=== PATIENT | male | born 1950 | race Caucasian/White ===

== ENCOUNTER 2020-04-11 13:05 | Emergency (ER) | payer MEDICARE, OTHER ==
[~2020-04-11] VITALS: Ht 193 cm; Wt 86.2 kg
[~2020-04-11 13:05] MED LIST: ASPI-667 PO; ATOR80TA PO; CETI10TA18 PO; CHOL200074 PO; CIPR500T86 PO; CLOP75TA52 PO; FURO40TA4 PO; GABA400C10 PO; HYDR25TA PO; INSU100V SQ; INSU100V3 SQ; ISOS60TA2 PO; METF500T17 PO; METO25TA4 PO; NITR0.4T26 SL; NPH,100V SQ; POTA10TA10 PO; QUET100T PO; RANI150T4 PO; SERT100T5 PO; TRAZ-168 PO
[2020-04-11] MEDS ORDERED: ZOFRAN ONE ×2 (13:17→15:33)
[2020-04-11] MEDS ORDERED: NS 1000ML 1,000 ML ONE ×2 (13:17→15:32)
--- NOTE | 2020-04-11 13:17 | NUR ---
ARRIVED PT IN WHEELCHAIR TO ROOM 8 C/C VOMITING AND STOMACH CRAMPING SINCE LAST NIGHT AFTER EATING A CHICKEN FAJITA. PT ACTIVELY VOMITING IV AND ZOFRAN GIVEN PT DENIES SOB CP PT IS DIABETIC AND TOOK 35UNITS OF REGULAR INSULIN BEFORE HE CAME TO THE ER. PT HAS DIABETIC BOOT AND FOOT ULCER ON RIGHT FOOT WITH TWO TOES AMPUTATED.
--- NOTE | 2020-04-11 13:30 | ER.PDOC ---
General Chief Complaint: Requesting Medical Care Stated Complaint: N/V Time seen by MD: 13:30 Source: patient, family Exam Limitations: no limitations History of Present Illness Initial Comments Patient c/o upper abdominal pain with n/v onset last night. Timing/Duration: 24 hours Severity/Quality: moderate, sharpness, stabbing Radiation: RUQ, LUQ, epigastric Associated Symptoms: denies symptoms Allergies: Coded Allergies: Penicillins (Verified Allergy, Unknown, Swelling, 02/16/16) coffee (Coffea arabica) (Verified Allergy, Unknown, 02/16/16) watermelon (Verified Allergy, Unknown, 02/16/16) Home Meds Active Scripts Nitroglycerin (NITROGLYCERIN) 0.4 Mg Tab.subl, 0.4 MG SL DAILY PRN for CHEST PAIN, #30 Prov:VIMAL BRODY MD 03/02/16 Aspirin (ASPIRIN) 81 Mg Tab.chew, 81 MG PO DAILY, #30 TAB.CHEW 4 Refills Prov:VIMAL BRODY MD 02/18/16 Reported Medications Clopidogrel Bisulfate (PLAVIX) 75 Mg Tablet, 1 TAB PO DAILY, #30 TAB 3 Refills 08/01/16 Nph, Human Insulin Isophane (HUMULIN N) 100 Unit/1 Ml Vial, 40 UNIT SQ BIDAC, VIAL 03/01/16 Sertraline Hcl (SERTRALINE HCL) 100 Mg Tablet, 200 MG PO DAILY, TABLET 02/16/16 Cholecalciferol (Vitamin D3) (VITAMIN D-3) 2,000 Unit Capsule, 2000 UNIT PO DAILY, CAPSULE 02/16/16 Atorvastatin 80MG (LIPITOR 80MG) 80 Mg Tablet, 80 MG PO DAILY, TAB 02/16/16 Ranitidine Hcl (RANITIDINE HCL) 150 Mg Tablet, 150 MG PO BID, TABLET 02/16/16 Quetiapine Fumarate (QUETIAPINE FUMARATE) 100 Mg Tablet, 100 MG PO HS, TABLET 02/16/16 Trazodone Hcl (TRAZODONE HCL) 100 Mg Tablet, 300 MG PO HS, TABLET 02/16/16 Potassium Chloride (POTASSIUM CHLORIDE) 10 Meq Tablet.er, 20 MEQ PO DAILY 02/16/16 Hydroxyzine Hcl (HYDROXYZINE HCL) 25 Mg Tablet, 25 MG PO BID PRN for ANXIETY, TABLET 02/16/16 Gabapentin (GABAPENTIN) 400 Mg Capsule, 400 MG PO QID, CAPSULE 02/16/16 Insulin Lispro (HUMALOG) 100 Unit/1 Ml Vial, 29.5 UNIT SQ ACHS PRN for HYPERGLYCEMIA, VIAL per sliding scale 02/16/16 Vital Signs First Vital Signs Date Time Temp Pulse Resp B/P (MAP) Pulse Ox O2 Delivery O2 Flow Rate FiO2 04/11/20 13:40 98.6 122 20 98 04/11/20 15:05 190/110 (136) Room Air Last Vital Signs Date Time Temp Pulse Resp B/P (MAP) Pulse Ox O2 Delivery O2 Flow Rate FiO2 04/11/20 16:14 186/107 04/11/20 15:05 98.6 80 20 94 Room Air Past Medical History Medical History: diabetes (takes 35 U NPH daily), other (cirrhosis) Surgical History: cardiac cath, other Social History Smoking: cigarettes Alcohol Use: sober (14 years) Drug Use: none Constitutional: denies no symptoms reported, denies see HPI, denies chills, denies diaphoresis, denies fever, denies malaise, denies weakness, denies other EENTM: denies no symptoms reported, denies see HPI, denies eye pain, denies blurred vision, denies tearing, denies double vision, denies ear pain, denies ear discharge, denies nose pain, denies nose congestion, denies throat pain, denies throat swelling, denies mouth pain, denies mouth swelling, denies other Respiratory: denies no symptoms reported, denies see HPI, denies cough, denies orthopnea, denies shortness of breath, denies SOB with exertion, denies SOB at rest, denies stridor, denies wheezing, denies other Cardiovascular: denies no symptoms reported, denies see HPI, denies chest pain, denies edema, denies irregular heart rate, denies lightheadedness, denies palpitations, denies syncope, denies other Gastrointestinal: abdominal pain, nausea, vomiting Musculoskeletal: denies no symptoms reported, denies see HPI, denies back pain, denies gout, denies joint pain, denies joint swelling, denies muscle pain, irma es muscle stiffness, denies neck pain, denies other Skin: denies no symptoms reported, denies see HPI, denies change in color, denies change in hair/nails, denies dryness, denies lesions, denies lumps, denies rash, denies other Psychiatric/Neurological: denies no symptoms reported, denies see HPI, denies anxiety, denies depressed, denies emotional problems, denies headache, denies numbness, denies paresthesia, denies pre-existing deficit, denies seizure, denies tingling, denies tremors, denies weakness, denies other All Other Systems: Reviewed and Negative Physical Exam General Appearance: No Apparent Distress, WD/WN HEENT: PERRL/EOMI, Normal ENT Inspection Neck: Full Range of Motion, Supple Respiratory: lungs clear, normal breath sounds, no respiratory distress, no accessory muscle use Cardiovascular: Regular Rate, Rhythm, No Murmur Gastrointestinal: Hypoactive bowel sounds, Soft, Tenderness (epigastric) Extremities: Non-Tender, Normal Inspection, No Pedal Edema, No Calf Tenderness Neurologic/Psychiatric: Alert, Normal Mood/Affect, Oriented x 3 Skin: Normal Color, Warm/Dry Results/Orders Results/Orders Orders - JOHNATHAN DAMON DO Ondansetron Hcl/Pf (Zofran) (04/11/20 13:17) 0.9 % Sodium Chloride (Ns 1000ml) (04/11/20 13:17) Cbc With Auto Diff (04/11/20 13:39) Comprehensive Metabolic Panel (04/11/20 13:39) Amylase (04/11/20 13:39) Lipase (04/11/20 13:39) Helicobacter Pylori (04/11/20 13:39) PT (04/11/20 13:39) Ct Abd/Pel With Iv Contrast (04/11/20 13:39) Partial Thromboplastin Time. (04/11/20 13:39) Urinalysis (04/11/20 13:39) Saline Lock (04/11/20 13:39) 0.9 % Sodium Chloride (Ns 1000ml) (04/11/20 13:39) Ondansetron Hcl/Pf (Zofran) (04/11/20 14:00) Labetalol Hcl (Trandate) (04/11/20 14:58) Labetalol Hcl (Trandate) (04/11/20 14:59) Ondansetron Hcl/Pf (Zofran) (04/11/20 15:31) 0.9 % Sodium Chloride (Ns 1000ml) (04/11/20 15:31) 0.9 % Sodium Chloride (Ns 1000ml) (04/11/20 15:32) Ondansetron Hcl/Pf (Zofran) (04/11/20 15:33) Labetalol Hcl (Trandate) (04/11/20 15:36) Urine Culture (04/11/20 14:30) Clonidine Hcl (Catapres) (04/11/20 16:08) Clonidine Hcl (Catapres) (04/11/20 16:10) Creatine Kinase (04/11/20 16:18) Creatine Kinase Mb (04/11/20 16:18) Troponin I (04/11/20 16:18) Ekg-Routine (04/11/20 16:18) Xr Chest 1v (04/11/20 16:18) Vital Signs Date Time Temp Pulse Resp B/P (MAP) Pulse Ox O2 Delivery O2 Flow Rate FiO2 04/11/20 16:14 186/107 04/11/20 15:05 98.6 80 20 190/110 (136) 94 Room Air 04/11/20 13:49 98.6 122 20 98 04/11/20 13:40 98.6 122 20 98 04/11/20 13:40 98.6 122 20 98 Administered Medications Medications (Trade) Dose Ordered Sig/Curt Route PRN Reason Start Time Stop Time Status Last Admin Dose Admin Clonidine (Catapres) 0.1 mg STAT STAT PO 04/11/20 16:08 04/11/20 16:10 DC 04/11/20 16:14 0.1 MG Labetalol HCl (Trandate) 10 mg STAT STAT IV 04/11/20 14:58 04/11/20 14:59 DC 04/11/20 15:02 10 MG Labetalol HCl (Trandate) 10 mg STAT STAT IV 04/11/20 15:36 04/11/20 15:37 DC 04/11/20 15:51 10 MG Ondansetron HCl (Zofran) 4 mg STAT STAT IV 04/11/20 14:00 04/11/20 14:01 DC 04/11/20 14:02 4 MG Ondansetron HCl (Zofran) 4 mg STAT STAT IV 04/11/20 15:31 04/11/20 15:32 DC 04/11/20 15:51 4 MG Sodium Chloride 1,000 ml @ 0 mls/hr Q0M STAT IV 04/11/20 15:31 04/11/20 15:32 DC 04/11/20 15:51 0 MLS/HR Sodium Chloride 1,000 ml @ 1,200 mls/hr Q50M STAT IV 04/11/20 13:39 04/11/20 14:28 DC 04/11/20 13:51 1,200 MLS/HR Laboratory Tests Test 04/11/20 14:15 04/11/20 16:27 White Blood Count 4.8 10^3/uL (4.5-11.0) Red Blood Count 4.99 10^6/uL (4.50-5.90) Hemoglobin 14.4 g/dL (13.9-16.3) Hematocrit 40.9 % (37.0-53.0) Mean Corpuscular Volume 82.0 fL (78-100) Mean Corpuscular Hemoglobin 28.9 pg (26-34) Mean Corpuscular Hemoglobin Concent 35.2 g/dL (33-36.5) Red Cell Distribution Width 13.9 % (11.5-14.5) Platelet Count 216 10^3/uL (150-400) Mean Platelet Volume 9.4 fL (7.8-11.0) Neutrophils (%) (Auto) 69.9 % (41.0-85.0) Lymphocytes (%) (Auto) 21.5 % (24.0-44.0) L Monocytes (%) (Auto) 7.4 % (5.0-12.0) Neutrophils # (Auto) 3.4 10^3/uL (1.8-7.7) Lymphocytes # (Auto) 1.04 10^3/uL1 (1.0-4.8) Monocytes # (Auto) 0.4 10^3/uL (0.3-0.8) Absolute Immature Granulocyte (auto 0.01 10^3 u/L (0-2) Absolute Eosinophils (auto) 0.0 10^3/uL (0.0-0.2) Immature Granulocytes % 0.20 % (0.00-0.50) Eosinophils % 0.2 % (0.0-5.0) Basophils % 0.8 % (0.0-0.2) H Basophils # 0.0 10^3/uL (0.0-0.1) Prothrombin Time 11.9 SEC (9.3-11.3) H Prothrombin Time INR (Non-Therap) 1.2 Activated Partial Thromboplast Time 22.7 SEC (24.67-30.72) Urine Collection Type VOID Urine Color YELLOW (YELLOW) Urine Appearance CLEAR (CLEAR) Urine Bilirubin NEGATIVE MG/DL (NEGATIVE) Urine Ketones 15 mg/dL (NEGATIVE) H Urine Specific [place] 1.030 (1.005-1.035) Urine pH 7.0 (5.0-6.0) Urine Protein 300mg/dL (NEGATIVE) Urine Urobilinogen NEGATIVE (NEGATIVE) Urine Nitrate NEGATIVE (NEGATAIVE) Urine Leukocyte Esterase NEGATIVE (NEGATIVE) Urine Blood TRACE (NEGATIVE) Urine RBC 0-2 RBC/HPF (NONE SEEN) Urine WBC 0-2 WBC/HPF (0-2) Urine Squamous Epithelial Cells RARE #/HPF (FEW) Urine Bacteria FEW (NONE SEEN) H Urine Glucose 500 (NEGATIVE) H Sodium Level 132 mmol/L (132-145) Potassium Level 3.7 mmol/L (3.6-5.2) Chloride Level 99.0 mmol/L (96-109) Carbon Dioxide Level 24.8 mmol/L (20.0-32) Anion Gap 11.9 Blood Urea Nitrogen 14 mg/dL (7-18) Creatinine 1.00 mg/dL (0.59-1.40) Estimated GFR () 89.1 (>/=60) Est GFR (CKD-EPI)(Non-Afr Welsh) 73.7 (>/=60) BUN/Creatinine Ratio 14.0 Glucose Level 338 mg/dL (70-110) H Calcium Level 9.2 mg/dL (8.4-10.5) Total Bilirubin 1.0 mg/dL (0.2-1.0) Aspartate Amino Transferase (AST) 14 U/L (0-35) Alanine Aminotransferase (ALT) 14 U/L (12-78) Alkaline Phosphatase 86 U/L (50-136) Total Protein 7.1 g/dL (6.4-8.2) Albumin 3.0 g/dL (3.4-5.0) L Globulin 4.1 Albumin/Globulin Ratio 0.731 Amylase Level 21 U/L (25-115) L Lipase 42 U/L (114-286) L Helicobacter pylori Screen NEGATIVE (NEGATIVE) Total Creatine Kinase 70 U/L (39-308) Creatine Kinase MB 1.6 ng/mL (0.5-3.6) Troponin I 0.05 ng/mL (0.00-0.05) Progress Progress UA without evidence of infection, WBC normal. Patient states he takes BP medication daily but cannot recall the name. We see no BP medications on his list. It took labetalol 20 mg (total) + clonidine 0.1 mg to get his blood pressure controlled. We will start him on lisinopril at home. EKG/XRAY/CT/US EKG Comments: sinus rhythm, VR 75, no acute STT changes CT Comments: perinephric fat stranding, no other abnormality ER DEPART Departure Time of Disposition: 17:22 Disposition: 01 HOME, SELF-CARE Impression: Primary Impression: Nausea & vomiting Additional Impression: Uncontrolled hypertension Condition: Improved Patient Instructions: Hypertension, Nausea and Vomiting Referrals: PCP,UNKNOWN (PCP) PRIMARY CARE PROVIDER Additional Instructions: Take the zofran as prescribed when needed for nausea and vomiting. Maintain a clear liquid diet until nausea resolves. TAke blood pressure medication as prescribed. Return to ER if worse or any other concerns. Follow up with your doctor next week. Duration or Time Spent with Pa: 40 min Problem Qualifiers Primary Impression: Nausea & vomiting Vomiting type: unspecified Vomiting Intractability: non-intractable Qualified Codes: R11.2 - Nausea with vomiting, unspecified JOHNATHAN DAMON DO Apr 11, 2020 13:30
[2020-04-11] MEDS ORDERED: NS 1000ML 1,000 ML IV STA (13:39)
[2020-04-11 13:40] VITALS: BP 170/109
[2020-04-11] MEDS ORDERED: ZOFRAN IV STA ×2 (14:00→15:31)
[2020-04-11 14:21] LABS: BASOPHIL % 0.8 % (0.0-0.2); EOSINOPHIL % 0.2 % (0.0-5.0); LYMPHOCYTES # 1.04 10^3/uL1 (1.0-4.8); LYMPHOCYTES % 21.5 % (24.0-44.0); MEAN CORP HGB 28.9 pg (26-34); MONOCYTES # 0.4 10^3/uL (0.3-0.8); MONOCYTES % 7.4 % (5.0-12.0); NEUTROPHIL # 3.4 10^3/uL (1.8-7.7); NEUTROPHILS % 69.9 % (41.0-85.0); PLATELET COUNT 216 10^3/uL (150-400); RED CELL DISTRIBUTION WIDTH 13.9 % (11.5-14.5)
[2020-04-11 14:38] LABS: CALCIUM 9.2 mg/dL (8.4-10.5); CARBON DIOXIDE 24.8 mmol/L (20.0-32)
[2020-04-11 14:49] LABS: APPEARANCE,URINE CLEAR (CLEAR); BILIRUBIN,URINE NEGATIVE (NEGATIVE); UA COLOR YELLOW (YELLOW)
[2020-04-11 14:50] LABS: UROBILINOGEN,URINE NEGATIVE (NEGATIVE)
[2020-04-11] MEDS ORDERED: TRANDATE IV STA ×2 (14:58→15:36)
[2020-04-11] MEDS ORDERED: TRANDATE IV ONE (14:59)
[2020-04-11 15:05] VITALS: BP 190/110
--- NOTE | 2020-04-11 15:30 | NUR ---
pt to ultrasound
[2020-04-11] MEDS ORDERED: NS 1000ML 1,000 ML STA (15:31)
--- NOTE | 2020-04-11 15:51 | DIREP ---
PROCEDURE:CT ABDOMEN/PELVIS W/ CONTRAST COMPARISON:None. INDICATIONS:abdominal pain with vomiting TECHNIQUE:Axial images were created through the abdomen and pelvis with non-ionic intravenous contrast material. No oral contrast was administered. Sagittal and coronal reconstructions were performed from source images. The study was reviewed on abdominal, lung, liver and bone windows FINDINGS: LUNG BASES:Normal. No visible pulmonary or pleural disease. Minimal bibasilar atelectasis and pleural thickening noted. Within the lungs bazan as visualized, no ground-glass infiltrates are seen to suggest viral pneumonia. A small pericardial effusion noted. LIVER:Normal. No significant liver lesions are identified. No focal hepatic lesions. The portal veins are patent. BILIARY:Normal. No visible dilatation or calcification. No CT scan evidence of cholelithiasis or cholecystitis. PANCREAS:Atrophy of pancreas. No pancreatitis or pseudocysts are seen. SPLEEN:Normal. No enlargement or focal lesion. ADRENALS:Normal. No mass or enlargement. URINARY TRACT:Normal. No focal lesions or hydronephrosis. No radiopaque renal stones identified. Contrast in the renal pelvis. There is infiltration of the perinephric fat, question past episodes of infection or infarction. If pyelonephritis is suspected correlation with urinary analysis is recommended. AORTA/VASCULAR:Normal. No aneurysm. RETROPERITONEUM:Normal. No mass or adenopathy. BOWEL/MESENTERY:Normal. There is no intestinal obstruction, free fluid, free air or mesenteric inflammatory changes. Normal appearing appendix. The appendix is visualized in the infra cecal region. Appears normal. No pericecal inflammatory changes are seen to suggest acute appendicitis. No diverticulitis, free air or free fluid is seen. Stomach is mildly distended. Small hiatal hernia noted. No small bowel obstruction is seen. No infiltration of the omentum, peritoneum more the mesentery is seen. ABDOMINAL WALL:Normal. No mass or hernia. PELVIC ORGANS:Normal. No visible mass. Pelvic organs appropriate for patient age. Mild enlargement of the prostate. Peripheral prostatic calcifications noted. Bladder is moderately distended. BONES:Mild compressions of T9 and T12 noted. OTHER:Negative. CONCLUSION:Infiltration of the perinephric fat bilaterally. No renal stones or hydronephrosis is seen. Recommend correlation with urinary analysis to rule out pyelonephritis. Simple cysts in the kidneys. No radiopaque renal stones are seen. Small pericardial effusions seen. Small hiatal hernia noted. No definite evidence for cholelithiasis, cholecystitis or pancreatitis. Normal appearing appendix. No diverticulitis, free air or free fluid is seen. Compressions of T9 and T12, likely chronic. Dictated by: Hilario Cowan MD on 04/11/2020 at 03:44 PM
[2020-04-11] MEDS ORDERED: CATAPRES PO STA (16:08)
--- NOTE | 2020-04-11 16:09 | NUR ---
pt resting on cart in Er 8 nauseated.
[2020-04-11] MEDS ORDERED: CATAPRES ONE (16:10)
--- NOTE | 2020-04-11 16:25 | PCM.EKG ---
[facility] Test Date: 2020-04-11 Test Time: 16:21:10 Pat Name: PATO BARCENAS Department: Room: Gender: M [employer] Operator: : [id number] Requested By: JOHNATHAN DAVIS Order Number: [id number] Reading MD: Sheridan Davis Measurements Intervals Elizabeth Rate: 75 P: 7 NE: 161 QRS: -50 QRSD: 109 T: 43 QT: 402 QTc: 449 Interpretive Statements Sinus rhythm LAD, consider left anterior fascicular block Borderline T wave abnormalities Compared to ECG 04/18/2018 20:39:54 T-wave abnormality now present Sinus tachycardia no longer present Atrial premature complex(es) no longer present Ventricular premature complex(es) no longer present Fusion complex(es) no longer present Left-axis deviation no longer present Myocardial infarct finding no longer present Electronically Signed On 04-13-2020 19:02:15 [employer]OX [employer] by Sheridan Davis Please click the below link to view image of tracing.
--- NOTE | 2020-04-11 16:43 | DIREP ---
PROCEDURE:CHEST 1 VIEW COMPARISON:[facility], CR, XRAY CHEST SINGLE VW, 04/18/2018, 08:39 PM. INDICATIONS:chest pain FINDINGS: LUNGS/PLEURA:No significant pulmonary parenchymal abnormalities. No effusions. The lungs are well-expanded and clear. No ground-glass interstitial infiltrates are seen to suggest viral pneumonia. No pneumonia, heart failure or effusions are seen. No pneumothorax, pneumomediastinum, aortic aneurysm or mediastinal widening is seen. VASCULATURE:Normal. Unremarkable pulmonary vasculature. CARDIAC:Normal. No cardiac silhouette abnormality or cardiomegaly. Aorta is tortuous. MEDIASTINUM:Normal. No visible mass or adenopathy. BONES:An old healed fracture of the left 7th rib posterior laterally. DJD in the right AC joint and in the right glenohumeral joint. DJD also seen in the left glenohumeral joint. OTHER:Negative. CONCLUSION:The lungs are clear. No viral or ground-glass infiltrates are seen. No pneumonia, heart failure or effusions identified. No pneumothorax, pneumomediastinum, aortic aneurysm or mediastinal widening is seen. Dictated by: Hilario Cowan MD on 04/11/2020 at 04:41 PM
[2020-04-11 17:21] VITALS: BP 171/95
== END 2020-04-11 17:26 | disposition home or self-care (01) ==
LOC: ER 13:05
DX: I10 Essential (primary) hypertension (principal); R11.2 Nausea with vomiting, unspecified
CPT/HCPCS: 36415; 71045; 74177; 80053; 81000; 82150; 82550; 82553; 83690; 84484; 85025; 85610; 85730; 86677; 87086; 93005; 96361; 96374; 96375; 96376; 99285; J2405 ×2; J7030 ×2; Q9965; J3490

== ENCOUNTER 2022-02-25 09:28 | Inpatient (IN) | payer OTHER ==
[~2022-02-25] VITALS: Ht 193 cm; Wt 77.3 kg
[2022-02-25 09:28] VITALS: BP 166/114
[~2022-02-25 09:28] MED LIST changes: +CLOP-28 PO; -CLOP75TA52 PO; -ISOS60TA2 PO; +ISOS60TA57 PO; -QUET100T PO; +QUET100T2 PO; +SERT-319 PO; -SERT100T5 PO
[2022-02-25] MEDS ORDERED: MORPHINE SULFATE IV STA (09:46)
[2022-02-25] MEDS ORDERED: ZOFRAN IV PRN ×2 (10:00→16:00)
[2022-02-25] MEDS ORDERED: DEMEROL IM STA (10:07)
[2022-02-25] MEDS ORDERED: ZOFRAN ODT ONE ×2 (10:08→10:09)
[2022-02-25] MEDS ORDERED: DEMEROL ONE (10:10)
--- NOTE | 2022-02-25 10:13 | ER.PDOC ---
General Chief Complaint: Nausea,Vomiting,Diarrhea Stated Complaint: N/V Time seen by MD: 10:00 Source: patient, family Exam Limitations: no limitations History of Present Illness Initial Comments 72-year-old male comes here with severe periumbilical abdominal pain and nausea vomiting started last night. Pain is severe. He did not take any medication for this at home. The pain is not associated with activity. No bleeding. No diarrhea. No burning upon urination. Patient is a very poor historian because of pain. Allergies: Coded Allergies: Penicillins (Verified Allergy, Unknown, Swelling, 02/16/16) coffee (Coffea arabica) (Verified Allergy, Unknown, 02/16/16) watermelon (Verified Allergy, Unknown, 02/16/16) Home Meds Active Scripts Nitroglycerin (NITROGLYCERIN) 0.4 Mg Tab.subl, 0.4 MG SL DAILY PRN for CHEST PAIN, #30 Prov:VIMAL BRODY MD 03/02/16 Aspirin (ASPIRIN) 81 Mg Tab.chew, 81 MG PO DAILY, #30 TAB.CHEW 4 Refills Prov:VIMAL BRODY MD 02/18/16 Reported Medications Clopidogrel Bisulfate (PLAVIX) 75 Mg Tablet, 1 TAB PO DAILY, #30 TAB 3 Refills 08/01/16 Nph, Human Insulin Isophane (HUMULIN N) 100 Unit/1 Ml Vial, 40 UNIT SQ BIDAC, VIAL 03/01/16 Sertraline Hcl (SERTRALINE HCL) 100 Mg Tablet, 200 MG PO DAILY, TABLET 02/16/16 Cholecalciferol (Vitamin D3) (VITAMIN D-3) 2,000 Unit Capsule, 2000 UNIT PO D AILY, CAPSULE 02/16/16 Atorvastatin 80MG (LIPITOR 80MG) 80 Mg Tablet, 80 MG PO DAILY, TAB 02/16/16 Ranitidine Hcl (RANITIDINE HCL) 150 Mg Tablet, 150 MG PO BID, TABLET 02/16/16 Quetiapine Fumarate (QUETIAPINE FUMARATE) 100 Mg Tablet, 100 MG PO HS, TABLET 02/16/16 Trazodone Hcl (TRAZODONE HCL) 100 Mg Tablet, 300 MG PO HS, TABLET 02/16/16 Potassium Chloride (POTASSIUM CHLORIDE) 10 Meq Tablet.er, 20 MEQ PO DAILY 02/16/16 Hydroxyzine Hcl (HYDROXYZINE HCL) 25 Mg Tablet, 25 MG PO BID PRN for ANXIETY, TABLET 02/16/16 Gabapentin (GABAPENTIN) 400 Mg Capsule, 400 MG PO QID, CAPSULE 02/16/16 Insulin Lispro (HUMALOG) 100 Unit/1 Ml Vial, 29.5 UNIT SQ ACHS PRN for HYPERGLYCEMIA, VIAL per sliding scale 02/16/16 Vital Signs First Vital Signs Date Time Temp Pulse Resp B/P (MAP) Pulse Ox O2 Delivery O2 Flow Rate FiO2 02/25/22 09:28 97.9 59 20 02/25/22 09:28 166/114 (131) 96 Room Air* 0 21 Last Vital Signs Date Time Temp Pulse Resp B/P (MAP) Pulse Ox O2 Delivery O2 Flow Rate FiO2 02/25/22 09:28 97.9 59 20 96 02/25/22 09:28 166/114 (131) Room Air* 0 21 Past Medical History Medical History: cardiac problems, COPD, diabetes, hypertension Surgical History: cardiac cath, stent LMP (females 10-50): N/A Not applicalbe Family History Significant Family History: no pertinent family hx Social History Smoking: non-smoker Alcohol Use: none Drug Use: none Reviewed Nursing Reviewed: Vital Signs, Abn. Noted Constitutional: denies no symptoms reported, denies see HPI, denies chills, denies diaphoresis, denies fever, denies malaise, denies weakness, denies other EENTM: denies no symptoms reported, denies see HPI, denies eye pain, denies blurred vision, denies tearing, denies double vision, denies ear pain, denies ear discharge, denies nose pain, denies nose congestion, denies throat pain, denies throat swelling, denies mouth pain, denies mouth swelling, denies other Respiratory: denies no symptoms reported, denies see HPI, denies cough, denies orthopnea, denies shortness of breath, denies SOB with exertion, denies SOB at rest, denies stridor, denies wheezing, denies other Cardiovascular: denies no symptoms reported, denies see HPI, denies chest pain, denies edema, denies irregular heart rate, denies lightheadedness, denies palpitations, denies syncope, denies other Gastrointestinal: denies no symptoms reported, denies see HPI, denies abdomen distended; abdominal pain; denies blood streaked bowels, denies constipated, denies diarrhea, denies difficulty swallowing; nausea; denies poor appetite, denies poor fluid intake, denies rectal bleeding; vomiting; denies other Genitourinary: denies no symptoms reported, denies see HPI, denies burning, denies dysuria, denies discharge, denies frequency, denies flank pain, denies hematuria, denies incontinence, denies pain, denies urgency, denies other Musculoskeletal: denies no symptoms reported, denies see HPI, denies back pain, denies gout, denies joint pain, denies joint swelling, denies muscle pain, denies muscle stiffness, denies neck pain, denies other Skin: denies no symptoms reported, denies see HPI, denies change in color, denies change in hair/nails, denies dryness, denies lesions, denies lumps, denies rash, denies other Psychiatric/Neurological: denies no symptoms reported, denies see HPI, denies anxiety, denies depressed, denies emotional problems, denies headache, denies numbness, denies paresthesia, denies pre-existing deficit, denies seizure, denies tingling, denies tremors, denies weakness, denies other Endocrine: denies no symptoms reported, denies see HPI, denies excessive sweating, denies flushing, denies intolerance to cold, denies intolerance to heat, denies increased hunger, denies increased thrist, denies increased urine, denies unexplained weight gain, denies unexplaned weight loss, denies other Hematologic/Lymphatic: denies no symptoms reported, denies see HPI, denies anemia, denies blood clots, denies easy bleeding, denies easy bruising, denies swollen glands, denies other All Other Systems: Reviewed and Negative Physical Exam General Appearance: Severe Distress HEENT: PERRL/EOMI, Normal ENT Inspection Neck: Non-Tender, Full Range of Motion, Supple, Normal Inspection Respiratory: chest non-tender, lungs clear, normal breath sounds, no respiratory distress, no accessory muscle use Cardiovascular: Normal Peripheral Pulses, Regular Rate, Rhythm, No Edema, No Gallop, No JVD Gastrointestinal: No Organomegaly, No Pulsatile Mass, Hypoactive bowel sounds, Distended, Tenderness Back: Normal Inspection, No CVA Tenderness, No Vertebral Tenderness Extremities: Normal Range of Motion, Non-Tender, Normal Inspection, No Pedal Edema, No Calf Tenderness, Normal Capillary Refill Neurologic/Psychiatric: prototyper II-XII NML as Tested, No Motor/Sensory Deficits, Alert, Normal Mood/Affect, Oriented x 3 Skin: Normal Color, Warm/Dry Lymphatic: No Adenopathy, Axilla Node Tender (R) Central Line Central Line : Central Line Lumen: triple Central Line Procedure: betadine prep Central Line Postion: subclavian (R) Anesthesia: Lidocaine Complications: none Central Line Post Position: good blood return Results/Orders Results/Orders Orders - MOJGAN LARES MD Morphine Sulfate (Morphine Sulfate) (02/25/22 09:46) Ondansetron Hcl/Pf (Zofran) (02/25/22 10:00) Cbc With Auto Diff (02/25/22 09:47) Comprehensive Metabolic Panel (02/25/22 09:47) Probnp B-Type Digital Marketing Coordinator (02/25/22 09:47) PT (02/25/22 09:47) Partial Thromboplastin Time. (02/25/22 09:47) D-Dimer (02/25/22 09:47) Xr Chest 1v (02/25/22 09:47) Ekg-Routine (02/25/22 09:47) Saline Lock (02/25/22 09:47) Troponin I High Sensitivity (02/25/22 09:47) Amylase (02/25/22 09:47) Lipase (02/25/22 09:47) Urinalysis (02/25/22 09:47) Lactic Acid(Ml) (02/25/22 09:48) Acetone,Serum (Ml) (02/25/22 09:48) Arterial Blood Gas (02/25/22 09:48) Ondansetron (Zofran Odt) (02/25/22 10:08) Meperidine Hcl/Pf (Demerol) (02/25/22 10:07) Ondansetron (Zofran Odt) (02/25/22 10:30) Ct Abd Wo Iv Contrast (02/25/22 10:07) Ondansetron (Zofran Odt) (02/25/22 10:09) Meperidine Hcl/Pf (Demerol) (02/25/22 10:10) 0.9 % Sodium Chloride (Ns 1000ml) (02/25/22 12:00) Insulin Regular, Human (Humulin R) (02/25/22 12:00) Xr Chest 1v (02/25/22 12:20) Vital Signs Date Time Temp Pulse Resp B/P (MAP) Pulse Ox O2 Delivery O2 Flow Rate FiO2 02/25/22 09:28 97.9 59 20 96 02/25/22 09:28 97.9 59 20 166/114 (131) 96 Room Air* 0 21 02/25/22 09:28 97.9 59 20 Administered Medications Medications (Trade) Dose Ordered Sig/Curt Route PRN Reason Start Time Stop Time Status Last Admin Dose Admin Meperidine HCl (Demerol) 100 mg STAT STAT IM 02/25/22 10:07 02/25/22 10:10 DC 02/25/22 10:18 100 MG Ondansetron HCl (Zofran Odt) 8 mg Q4H PRN SL NAUSEA / VOMITING 02/25/22 10:30 03/27/22 10:29 02/25/22 10:24 8 MG Laboratory Tests Test 02/25/22 10:07 02/25/22 10:17 02/25/22 10:33 Blood Gas Sample Site RT RADIAL ARTERY Blood pH 7.484 (7.350-7.450) Blood Gas PCO2 28.1 mmHg (35.0-45.0) L Blood Gas PO2 72.3 mmHg (80.0-100.0) L Blood Gas HCO3 20.6 mmol/L (22.0-26.0) L Blood Gas Base Excess -1.3 mmol/L (-2.0-2.0) Christoph Test POSITIVE Arterial Blood Oxygen Saturation 95.1 % (94.0-97.00) Deoxyhemoglobin 4.8 % (0.0-5.0) Carboxyhemoglobin 2.2 % (0.0-3.9) Methemoglobin 0.3 % (0.00-5.0) Total Hemoglobin 15.7 % (12.0-17.8) Total Oxygen Concentration 20.5 % (13.5-17.5) H Blood Gas Temperature 37 FiO2 21 % (20-101) Total Carbon Dioxide 21.5 mmol/L (23-27) L White Blood Count 7.4 10^3/uL (4.5-11.0) Red Blood Count 5.26 10^6/uL (4.50-5.90) Hemoglobin 15.6 g/dL (13.9-16.3) Hematocrit 44.5 % (37.0-53.0) Mean Corpuscular Volume 84.6 fL (78-100) Mean Corpuscular Hemoglobin 29.7 pg (26-34) Mean Corpuscular Hemoglobin Concent 35.1 g/dL (33-36.5) Red Cell Distribution Width 13.1 % (11.5-14.5) Platelet Count 209 10^3/uL (150-400) Mean Platelet Volume 10.3 fL (7.8-11.0) Neutrophils (%) (Auto) 84.2 % (41.0-85.0) Lymphocytes (%) (Auto) 12.5 % (24.0-44.0) L Monocytes (%) (Auto) 2.4 % (5.0-12.0) L Neutrophils # (Auto) 6.2 10^3/uL (1.8-7.7) Lymphocytes # (Auto) 0.92 10^3/uL1 (1.0-4.8) L Monocytes # (Auto) 0.2 10^3/uL (0.3-0.8) L Absolute Immature Granulocyte (auto 0.02 10^3 u/L (0-2) Absolute Eosinophils (auto) 0.0 10^3/uL (0.0-0.2) Immature Granulocytes % 0.30 % (0.00-0.50) Eosinophils % 0.1 % (0.0-5.0) Basophils % 0.5 % (0.0-0.2) H Basophils # 0.0 10^3/uL (0.0-0.1) Prothrombin Time 10.1 SEC (9.1-11.5) Prothrombin Time INR (Non-Therap) 1.0 Activated Partial Thromboplast Time 21.9 SEC (22.5-33.1) L D-Dimer 1.00 mg/L (0.19-0.49) *H Sodium Level 128 mmol/L (132-145) L Potassium Level 5.2 mmol/L (3.6-5.2) Chloride Level 93.0 mmol/L (96-109) L Carbon Dioxide Level 21.2 mmol/L (20.0-32) Anion Gap 19.0 Blood Urea Nitrogen 20 mg/dL (7-18) H Creatinine 1.17 mg/dL (0.59-1.40) Estimated GFR () 73.9 (>/=60) Est GFR (CKD-EPI)(Non-Afr Hungarian) 61.1 (>/=60) BUN/Creatinine Ratio 17.0 Glucose Level 535 mg/dL (70-110) *H Lactic Acid Level 2.5 mmol/L (0.5-1.9) *H Calcium Level 9.6 mg/dL (8.4-10.5) Total Bilirubin 1.0 mg/dL (0.2-1.0) Aspartate Amino Transferase (AST) 19 U/L (0-35) Alanine Aminotransferase (ALT) 19 U/L (12-78) Alkaline Phosphatase 107 U/L (50-136) Troponin I High Sensitivity 28 ng/L (0-75) Pro-B-Type Natriuretic Peptide 5075 pg/mL (0-125) H Total Protein 7.8 g/dL (6.4-8.2) Albumin 3.9 g/dL (3.4-5.0) Globulin 3.9 Albumin/Globulin Ratio 1.000 Amylase Level 37 U/L (25-115) Lipase 192 U/L (114-286) Acetone, Semi-Quantitative SMALL Urine Collection Type RANDOM Urine Color YELLOW Urine Appearance CLEAR Urine Bilirubin NEGATIVE (NEGATIVE) Urine Ketones 1+ (NEGATIVE) H Urine Specific [place] 1.020 (1.005-1.030) Urine pH 7.0 (4.5-8.0) Urine Protein 3+ (NEGATIVE) H Urine Urobilinogen 0.2 E.U./dL (0.2) Urine Nitrate NEGATIVE (NEGATIVE) Urine Leukocyte Esterase NEGATIVE (NEGATIVE) Urine Glucose (Auto)(UA) >=1000 mg/dL (NEGATIVE) H Urine Blood 1+ (NEGATIVE) H Urine RBC 0-2 RBC/HPF (NONE SEEN) Urine WBC 0-2 WBC/HPF (0-2) Urine Squamous Epithelial Cells FEW (<=FEW) Urine Bacteria NONE SEEN (NONE SEEN) Urine Yeast FEW (NONE SEEN) Progress Progress Chest x-ray shows no acute disease EKG shows tachycardia at that 1 of ibuprofen, [place] 160 ms, QRS [address] segment showed no ST elevation or depression CT of the abdomen pelvis shows no acute disease ED course: Patient came here with what appeared to be severe acute abdominal pain. He denies any chest pain. Denies any shortness of breath. He also had almost 18 hours of intractable nausea and vomiting. The patient here with normal vomiting after some IV Zofran and IV narcotics. He may have gastroparesis. His blood sugar was very high. He got some IV insulin and IV fluids. The patient was also given some IV Pepcid. Hemoglobin is stable. White count normal. The electrolytes unremarkable. ABG shows no indication of acidosis. CT of the abdomen and pelvis unremarkable. X-rays unremarkable. EKG shows no ischemia. Troponin is normal. Patient will be admitted to the medical team. Will be hydrated. Observation status. ER DEPART Departure Time of Disposition: 12:55 Disposition: 02 SHORT TERM HOSPITAL Impression: Primary Impression: Abdominal pain Additional Impressions: Lactic acidosis Diabetes type 2, uncontrolled Condition: Stable Referrals: PCP,UNKNOWN (PCP) PRIMARY CARE PROVIDER Duration or Time Spent with Pa: 90 Problem Qualifiers MOJGAN LARES MD Feb 25, 2022 10:13
--- NOTE | 2022-02-25 10:13 | DIREP ---
PROCEDURE:CHEST 1 VIEW COMPARISON:[facility], CR, XRAY CHEST SINGLE VW, 04/11/2020, 04:25 PM. INDICATIONS:abd pain FINDINGS: LUNGS/PLEURA:Senescent changes. No confluent airspace consolidation, pleural effusion or pneumothorax is identified. VASCULATURE:Normal. Unremarkable pulmonary vasculature. CARDIAC:The heart is not significantly enlarged. Cardiac loop recorder noted. MEDIASTINUM:Mediastinal contours appear within acceptable limits with calcifications of the aorta. BONES:Degenerative changes of the spine. Previous left posterior rib fracture is similar to the previous study. CONCLUSION:Stable chest without acute cardiopulmonary abnormality. Dictated by: Steven Barnes M.D. on 02/25/2022 at 10:10 AM
[2022-02-25] MEDS ORDERED: ZOFRAN ODT SL PRN (10:30)
[2022-02-25 10:39] LABS: BILIRUBIN,URINE NEGATIVE (NEGATIVE); UROBILINOGEN,URINE 0.2 E.U./dL (0.2)
[2022-02-25 10:41] LABS: ABG PCO2 28.1 mmHg (35.0-45.0); ABG PH 7.484 (7.350-7.450); BE(B) -1.3 mmol/L (-2.0-2.0); HCO3act 20.6 mmol/L (22.0-26.0); pO2 72.3 mmHg (80.0-100.0)
[2022-02-25 10:46] LABS: YEAST,URINE FEW (NONE SEEN)
--- NOTE | 2022-02-25 10:49 | NUR ---
CRITICAL LAB LACTIC ACID IS 2.5, NOTIFIED AT THIS TIME.
[2022-02-25 11:03] LABS: CARBON DIOXIDE 21.2 mmol/L (20.0-32)
--- NOTE | 2022-02-25 11:12 | NUR ---
CRITICAL LAB GLUCOSE IS 535, NOTIFIED.
--- NOTE | 2022-02-25 11:17 | PCM.EKG ---
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 : 1950 Requested By: MOJGAN LARES Order Number: [id number] Reading MD: Measurements Intervals [place] Rate: 105 P: 21 MT: 162 QRS: -33 QRSD: 129 T: 58 QT: 382 QTc: 506 Interpretive Statements Sinus tachycardia Nonspecific intraventricular conduction delay Probable anteroseptal infarct, old Baseline wander in lead(s) I,II,III,aVR,aVL,V5,V6 Compared to ECG 04/11/2020 16:21:10 Intraventricular conduction delay now present Myocardial infarct finding now present Sinus rhythm no longer present T-wave abnormality no longer present Please click the below link to view image of tracing.
--- NOTE | 2022-02-25 11:21 | DIREP ---
PROCEDURE:CT ABDOMEN W/O COMPARISON:[facility], CT, CT ABD/PELVIS W/ CONTRAST, 04/11/2020, 03:25 PM. INDICATIONS:severe pain TECHNIQUE:Axial images were created through the abdomen without intravenous contrast material. No oral contrast was administered. Sagittal and coronal reconstructions were performed from source images. FINDINGS: LUNG BASES:Hyperinflation may reflect senescent changes or potential underlying chronic lung disease such as COPD. Diffuse coronary artery calcifications with potential coronary stents. LIVER:No suspicious focal hepatic lesion. BILIARY:The gallbladder is nondistended. No radiopaque calculi. No significant intrahepatic or extrahepatic biliary ductal dilatation. PANCREAS:No suspicious pancreatic abnormality. SPLEEN:The spleen is not enlarged. No focal splenic lesion identified. ADRENALS:The adrenal glands are unremarkable. URINARY TRACT:Bilateral renal vascular calcifications. Potential nephrolithiasis is not entirely excluded. No calculi are identified within the imaged ureters. There is no hydronephrosis. AORTA/VASCULAR:Diffuse atherosclerotic calcifications. No aneurysmal dilatation. RETROPERITONEUM:No suspicious retroperitoneal lymphadenopathy. BOWEL/MESENTERY:No evidence for small bowel obstruction. Scattered diverticulosis of the imaged distal colon. No evidence to suggest acute diverticulitis; however, the colon was not imaged in its entirety as the pelvis was not imaged. The appendix was not adequately imaged. No free air. ABDOMINAL WALL:No significant hernia. BONES:Degenerative changes of the spine. Compression deformity within the mid thoracic spine is fairly similar to the previous study. There is mild compression deformity within the upper lumbar spine which does appear new from the previous study. CONCLUSION: 1. No acute intra-abdominal abnormality. Unremarkable CT appearance of the gallbladder. No definite nephrolithiasis. No calculi within the imaged ureters. No hydronephrosis. Scattered diverticulosis of the imaged distal colon without convincing evidence to suggest acute diverticulitis. 2. Compression deformity within the upper lumbar spine is of indeterminate chronicity. This does appear new from the previous study from 2019. 3. Additional findings as discussed above. Dictated by: Steven Barnes M.D. On 02/25/2022 at 11:10 AM
[2022-02-25 11:22] LABS: BASOPHIL % 0.5 % (0.0-0.2); EOSINOPHIL % 0.1 % (0.0-5.0); LYMPHOCYTES # 0.92 10^3/uL1 (1.0-4.8); LYMPHOCYTES % 12.5 % (24.0-44.0); MEAN CORP HGB 29.7 pg (26-34); MONOCYTES # 0.2 10^3/uL (0.3-0.8); MONOCYTES % 2.4 % (5.0-12.0); NEUTROPHIL # 6.2 10^3/uL (1.8-7.7); NEUTROPHILS % 84.2 % (41.0-85.0); RED CELL DISTRIBUTION WIDTH 13.1 % (11.5-14.5)
[2022-02-25] MEDS ORDERED: NS 1000ML 2,000 ML IV ONE (12:00)
[2022-02-25] MEDS ORDERED: HUMULIN R IV ONE (12:00)
--- NOTE | 2022-02-25 13:04 | DIREP ---
PROCEDURE:CHEST 1 VIEW COMPARISON:[facility], CR, XRAY CHEST SINGLE VW, 02/25/2022, 09:50 AM. INDICATIONS:CENTRAL LINE PLACEMENT FINDINGS: LUNGS/PLEURA:No significant pulmonary parenchymal abnormalities. No effusions. No pneumothorax. VASCULATURE:Normal. Unremarkable pulmonary vasculature. CARDIAC:Normal. No cardiac silhouette abnormality or cardiomegaly. Left chest wall monitoring device. MEDIASTINUM:Atherosclerotic aorta with no visible aneurysm. BONES:Normal. No fracture or visible bony lesion. OTHER:Right subclavian central venous catheter terminates at the cavoatrial junction. CONCLUSION: 1. Mid subclavian central venous catheter terminates the cavoatrial junction. No pneumothorax . Dictated by: Philip Peng MD on 02/25/2022 at 12:58 PM
[2022-02-25] MEDS ORDERED: NS 1000ML 1,000 ML ONE (13:19)
[2022-02-25] MEDS ORDERED: HUMULIN R ONE (13:19)
--- NOTE | 2022-02-25 14:00 | NUR ---
ARRIVAL RECEIVED PT ON UNIT TO ROOM 330 VIA STRETCHER, ACCOMPANIED BY ANDREA MONTERO FROM ED AT THIS TIME. RECEIVED REPORT FROM ANDREA MONTERO. PT TRANSFERRED FROM STRETCHER TO BED. BED IN LOWEST POSITION, SIDE RAILS X2, LOCKED, CALL LIGHT WITHIN REACH. PT IN APPARENT STABLE CONDITION, EQUAL CHEST RISE AND FALL, PLACED ON 2L VIA NASAL CANNULA. THIS NURSE TO INITIATE ADMISSION PER PROTOCOL.
[2022-02-25 14:29] VITALS: BP_SYST 147; BP_SYST 171; BP_DIAS 102; BP_DIAS 81
[2022-02-25] MEDS ORDERED: LANTUS SQ STA ×2 (15:09→15:33)
[2022-02-25] MEDS ORDERED: NITROSTAT SL PRN (15:30)
[2022-02-25] MEDS ORDERED: ATARAX PO PRN (15:30)
[2022-02-25] MEDS ORDERED: DEXTROSE 50%-WATER SYRINGE IV PRN (15:30)
[2022-02-25] MEDS ORDERED: MORPHINE SULFATE IV PRN (15:30)
[2022-02-25] MEDS ORDERED: VENTOLIN IH PRN ×2 (15:30→16:00)
--- NOTE | 2022-02-25 15:33 | PCM.HP ---
History of Present Illness History of Present Illness 72-year-old gentleman with history of CAD, COPD on 3 L home oxygen, hyperlipidemia, diabetes mellitus and hypertension presented to ER with complaints of loss of appetite for last 2 to 3 days associated with vomiting and nausea. He also feels quite weak generalized . he also had periumbilical pain and abdomen that started last night. He denies eating outside or any sick contacts. No recent travel. No fever, chills, chest pain, shortness of breath or cough, diarrhea, dysuria. He was found to have high blood glucose levels of 500+ in ER and was given 2 L IV fluid in addition to subcutaneous and IV insulin. There is no evidence of acidosis. He denies missing any insulin doses. Past Medical History Cardiac: CAD, CHF, HTN, UT, Hyperlipidemia, Valve Insufficiency, Other Pulmonary: COPD Psychiatric: Anxiety, Depression Musculoskeletal: Chronic Low Back Pain ENT: Sinusitis Renal/: Chronic Renal Insuff Endocrine: Diabetes Past Surgical History: Other Past Social History Smoke: 1 pack per day Alcohol: rare Lives: Alone Travel Hx EBOLA RISK:Travel to/contact w: No Review of Systems Constitutional: Sweats, Weakness Respiratory: Shortness of breath Cardiovascular: Chest Pain, Palpitations, Lt Headedness Genitourinary: Dysuria, Frequency, Incontinence, Hematuria Musculoskeletal: leg pain, foot pain Neurological: Weakness Allergies: Coded Allergies: Penicillins (Verified Allergy, Unknown, Swelling, 02/16/16) coffee (Coffea arabica) (Verified Allergy, Unknown, 02/16/16) watermelon (Verified Allergy, Unknown, 02/16/16) Scheduled Aspirin (Aspirin), 81 MG PO DAILY Atorvastatin 80MG (Lipitor 80MG), 80 MG PO DAILY, (Reported) Cholecalciferol (Vitamin D3) (Vitamin D-3), 2,000 UNIT PO DAILY, (Reported) Clopidogrel Bisulfate (Plavix), 1 TAB PO DAILY, (Reported) Gabapentin (Gabapentin), 400 MG PO QID, (Reported) Nph, Human Insulin Isophane (Humulin N), 40 UNIT SQ BIDAC, (Reported) Potassium Chloride (Potassium Chloride), 20 MEQ PO DAILY, (Reported) Quetiapine Fumarate (Quetiapine Fumarate), 100 MG PO HS, (Reported) Ranitidine Hcl (Ranitidine Hcl), 150 MG PO BID, (Reported) Sertraline Hcl (Sertraline Hcl), 200 MG PO DAILY, (Reported) Trazodone Hcl (Trazodone Hcl), 300 MG PO HS, (Reported) Scheduled PRN Hydroxyzine Hcl (Hydroxyzine Hcl), 25 MG PO BID PRN for ANXIETY, (Reported) Insulin Lispro (Humalog), 29.5 UNIT SQ ACHS PRN for HYPERGLYCEMIA, (Reported) Nitroglycerin (Nitroglycerin), 0.4 MG SL DAILY PRN for CHEST PAIN VTE VTE Risk Total Score: 2 VTE Risk Score VTE Risk: Score 0-1 = Low Risk (Aggressive mobilization; early ambulation; no VTE prophylaxis required) Score 2: Moderate Risk (Intermittent/Pneumatic Compression Device OR Lovenox/Heparin/Coumadin) Score 3-4: High Risk (Intermittent/Pneumatic Compression Device AND Lovenox/Heparin/Coumadin) Score > or =5: Highest Risk (Intermittent/Pneumatic Compression Device AND Lovenox/Heparin/Coumadin) Antico:Hep/LMWH/Coum/Xarelto: Yes VTE VTE Present on Admission: Yes Currently receiving anticoagul: Yes VTE Risk Total Score: 2 Antico:Hep/LMWH/Coum/Xarelto: Yes Exam Vital Signs Vital Signs Date Time Temp Pulse Resp B/P (MAP) Pulse Ox O2 Delivery O2 Flow Rate FiO2 02/25/22 14:31 Nasal Cannula 2.00 02/25/22 14:29 97.8 101 20 147/81 (103) 90 28 General Appearance: Alert, Oriented X3, Cooperative HEENT: Atraumatic, Other (Dry oral mucosa) Respiratory: Clear to auscultation, Normal air movement Cardiovascular: Regular rate, Normal S1, Normal S2 Abdominal: Normal bowel sounds, Other (Periumbilical tenderness mild) Extremities: No clubbing, No cyanosis, No edema Skin: No rash, No breakdown Neuro: Normal speech, Normal tone Psych/Mental Status: Mental status NL, Mood NL Assessment/Plan Assessment/Plan Assessment/Plan Hyperglycemia secondary to type 2 diabetes mellitus: Patient takes 60 units of Lantus at home and he has not missed any doses. Started on 20 units Lantus subcutaneous start in addition to 40 units Lantus at bedtime in addition to sliding scale insulin. Nausea, vomiting, abdominal pain: CT abdomen done in ER is negative. Likely due to metabolic cause secondary to hyperglycemia. Could also be due to infectious process and have ordered blood cultures. UA is negative for any evidence of infection. Dehydration: Patient is quite dehydrated on exam poor p.o. intake for last few days and hyperglycemia. He received 2 L normal saline bolus in ER and I have started him today on 100 cc/h IV normal saline infusion. His lactate was elevated to 2.5 at presentation. CAD: Continue home aspirin and Plavix Hypertension: Continue home blood pressure meds COPD: Stable continue oxygen supplementation and bronchodilator by nebulization as needed Depression: Continue home sertraline and Seroquel and trazodone DVT prophylaxis: Lovenox CODE STATUS: Full code Disposition: Depending on blood culture results and clinical status, likely to [facility] 1 to 2 days Patient History: Alzheimer's disease 31 MOTHER Asthma 31 MOTHER G8 BROTHER G8 SISTER FH: brain tumor 32 FATHER TIMO GREENWOOD MD Feb 25, 2022 15:33
[2022-02-25] MEDS: NS 1000ML 1,000 ML IV SCH (15:40)
[2022-02-25] MEDS ORDERED: HUMALOG SQ ONE ×2 (16:00→18:30)
[2022-02-25] MEDS: NEURONTIN PO SCH ×2 (16:11→21:10)
[2022-02-25] MEDS: HUMALOG SQ SCH (16:56)
[2022-02-25] MEDS ORDERED: HUMALOG SQ SCH (17:30)
[2022-02-25 20:08] VITALS: BP 101/66
[2022-02-25] MEDS ORDERED: PEPCID PO SCH (21:00)
[2022-02-25] MEDS ORDERED: SEROQUEL PO SCH (21:00)
[2022-02-25] MEDS ORDERED: TRAZODONE HCL PO SCH (21:00)
[2022-02-25] MEDS ORDERED: LOVENOX SQ SCH (21:00)
[2022-02-25] MEDS ORDERED: LANTUS SQ SCH (21:00)
[2022-02-25] MEDS ORDERED: DESYREL ONE (21:16)
[2022-02-25 23:45] VITALS: BP 101/65
[2022-02-26] MEDS: NS 1000ML 1,000 ML IV SCH ×2 (00:33→11:30)
[2022-02-26 04:19] VITALS: BP 113/68
[2022-02-26 05:34] LABS: CARBON DIOXIDE 28.4 mmol/L (20.0-32)
[2022-02-26] MEDS ORDERED: PEPCID PO SCH (07:30)
[2022-02-26] MEDS: HUMALOG SQ SCH ×2 (08:00→12:02)
[2022-02-26] MEDS: NEURONTIN PO SCH (08:23)
[2022-02-26 08:24] VITALS: BP 121/79
[2022-02-26] MEDS ORDERED: ASPIRIN PO SCH (09:00)
[2022-02-26] MEDS ORDERED: PLAVIX PO SCH (09:00)
[2022-02-26] MEDS ORDERED: LIPITOR PO SCH (09:00)
[2022-02-26] MEDS ORDERED: ZOLOFT PO SCH (09:00)
[2022-02-26] MEDS ORDERED: INSU100V8 SQ (10:05)
--- NOTE | 2022-02-26 10:17 | PRM.DC ---
Discharge Summary Date of Discharge: Feb 26, 2022 Time of Request to Discharge: 10:09 Reason for Visit: nausea, and pain, Vomiting Hospital Course 72-year-old gentleman with history of CAD, COPD on 3 L home oxygen, hyperlipidemia, diabetes mellitus and hypertension presented to ER with complaints of loss of appetite for last 2 to 3 days associated with vomiting and nausea and generalised weakness, associated with periumbilical pain in abdomen. He was found to have high blood glucose levels of 500+ in ER and was given 2 L IV fluid in addition to subcutaneous and IV insulin. He denied missing any insulin doses. Started on 20 units Lantus subcutaneous start in addition to 40 units Lantus at bedtime in addition to sliding scale insulin. CT abdomen done in ER was negative and abdominal pain was thought likely due to metabolic cause secondary to hyperglycemia. UA was negative for any evidence of infection. he w as also found to be very dehydrated on exam likley due to poor p.o. intake for last few days and hyperglycemia. He received 2 L normal saline bolus in ER and 100 cc/h IV normal saline infusion. His lactate was elevated to 2.5 at presentation. At the time of discharge, he was feeling well and had no symptoms and BG had come down to normal levels. he would follow up with PCP in 1 week. Patient History: Alzheimer's disease 32 MOTHER Asthma 32 MOTHER G8 BROTHER G8 SISTER FH: brain tumor 33 FATHER General: Alert, Oriented X3, Cooperative HEENT: Atraumatic, PERRLA, EOMI Neck: Supple, No JVD, No thyromegaly Lungs: Clear to auscultation, Normal air movement Heart: Regular rate, Normal S1, Normal S2, No murmurs Abdomen: Normal bowel sounds, Soft, No tenderness Extremities: No clubbing, No cyanosis, No edema Skin: No rashes, No breakdown, No significant lesion Neuro: Normal gait, Normal speech, Strength at 5/5 X4 ext Psych/Mental Status: Mental status NL, Mood NL Scheduled Aspirin (Aspirin), 81 MG PO DAILY Atorvastatin 80MG (Lipitor 80MG), 80 MG PO DAILY, (Reported) Cholecalciferol (Vitamin D3) (Vitamin D-3), 2,000 UNIT PO DAILY, (Reported) Clopidogrel Bisulfate (Plavix), 1 TAB PO DAILY, (Reported) Gabapentin (Gabapentin), 400 MG PO QID, (Reported) Insulin Glargine,Hum.rec.anlog (Lantus), 60 UNIT SQ HS Nph, Human Insulin Isophane (Humulin N), 40 UNIT SQ BIDAC, (Reported) Potassium Chloride (Potassium Chloride), 20 MEQ PO DAILY, (Reported) Quetiapine Fumarate (Quetiapine Fumarate), 100 MG PO HS, (Reported) Ranitidine Hcl (Ranitidine Hcl), 150 MG PO BID, (Reported) Sertraline Hcl (Sertraline Hcl), 200 MG PO DAILY, (Reported) Trazodone Hcl (Trazodone Hcl), 300 MG PO HS, (Reported) Scheduled PRN Hydroxyzine Hcl (Hydroxyzine Hcl), 25 MG PO BID PRN for ANXIETY, (Reported) Insulin Lispro (Humalog), 29.5 UNIT SQ ACHS PRN for HYPERGLYCEMIA, (Reported) Nitroglycerin (Nitroglycerin), 0.4 MG SL DAILY PRN for CHEST PAIN Sepsis Evaluation @ Discharge 02/26/22 09:53 Course Sepsis Screening Results: Posi: NEGATIVE Sepsis Qualifier/Stage: NO DEFINITE RISK Duration or Total Time Spent w: 90 Vitals & review Data Vital Sign - Last 24 Hours 02/25/22 02/25/22 02/25/22 02/25/22 14:29 14:31 20:08 22:00 Temp 97.8 97.4 Pulse 101 106 Resp 20 19 B/P (MAP) 147/81 (103) 101/66 (78) Pulse Ox 90 96 O2 Delivery Nasal Cannula* Nasal Cannula Nasal Cannula* Nasal Cannula O2 Flow Rate 2 2.00 2 2.00 FiO2 28 28 02/25/22 02/25/22 02/25/22 02/26/22 22:04 22:05 23:45 04:19 Pulse 106 98 102 Resp 19 19 20 20 B/P (MAP) 101/65 (77) 113/68 (83) Pulse Ox 96 96 98 96 O2 Delivery Nasal Cannula* Nasal Cannula* Nasal Cannula* O2 Flow Rate 2 2 2 FiO2 28 28 28 02/26/22 02/26/22 08:24 09:54 Temp 98.4 Pulse 97 Resp 19 B/P (MAP) 121/79 (93) Pulse Ox 97 O2 Delivery Nasal Cannula* Nasal Cannula O2 Flow Rate 2 2.00 FiO2 28 Intake and Output 02/26/22 07:00 Output Total 200 ml Balance -200 ml Laboratory Tests Test 02/25/22 10:07 02/25/22 10:17 02/25/22 10:33 02/25/22 13:02 Blood Gas Sample Site RT RADIAL ARTERY Blood Gas pH 7.484 Blood Gas PCO2 28.1 mmHg Blood Gas PO2 72.3 mmHg Blood Gas HCO3 20.6 mmol/L Blood Gas Base Excess -1.3 mmol/L Christoph Test POSITIVE Arterial Blood Oxygen Saturation 95.1 % Deoxyhemoglobin 4.8 % Carboxyhemoglobin 2.2 % Methemoglobin 0.3 % Total Hemoglobin 15.7 % Total Oxygen Concentration 20.5 % Blood Gas Temperature 37 FiO2 21 % Total Carbon Dioxide 21.5 mmol/L White Blood Count 7.4 10^3/uL Red Blood Count 5.26 10^6/uL Hemoglobin 15.6 g/dL Hematocrit 44.5 % Mean Corpuscular Volume 84.6 fL Mean Corpuscular Hemoglobin 29.7 pg Mean Corpuscular Hemoglobin Concent 35.1 g/dL Red Cell Distribution Width 13.1 % Platelet Count 209 10^3/uL Mean Platelet Volume 10.3 fL Neutrophils (%) (Auto) 84.2 % Lymphocytes (%) (Auto) 12.5 % Monocytes (%) (Auto) 2.4 % Neutrophils # (Auto) 6.2 10^3/uL Lymphocytes # (Auto) 0.92 10^3/uL1 Monocytes # (Auto) 0.2 10^3/uL Absolute Immature Granulocyte (auto 0.02 10^3 u/L Absolute Eosinophils (auto) 0.0 10^3/uL Immature Granulocytes % 0.30 % Eosinophils % 0.1 % Basophils % 0.5 % Basophils # 0.0 10^3/uL Prothrombin Time 10.1 SEC Prothrombin Time INR (Non-Therap) 1.0 Activated Partial Thromboplast Time 21.9 SEC D-Dimer 1.00 mg/L Sodium Level 128 mmol/L Potassium Level 5.2 mmol/L Chloride Level 93.0 mmol/L Carbon Dioxide Level 21.2 mmol/L Anion Gap 19.0 Blood Urea Nitrogen 20 mg/dL Creatinine 1.17 mg/dL Estimated GFR () 73.9 Est GFR (CKD-EPI)(Non-Afr Scottish) 61.1 BUN/Creatinine Ratio 17.0 Glucose Level 535 mg/dL Lactic Acid Level 2.5 mmol/L Calcium Level 9.6 mg/dL Total Bilirubin 1.0 mg/dL Aspartate Amino Transf (AST/SGOT) 19 U/L Alanine Aminotransferase (ALT/SGPT) 19 U/L Alkaline Phosphatase 107 U/L Troponin I High Sensitivity 28 ng/L Pro-B-Type Natriuretic Peptide 5075 pg/mL Total Protein 7.8 g/dL Albumin 3.9 g/dL Globulin 3.9 Albumin/Globulin Ratio 1.000 Amylase Level 37 U/L Lipase 192 U/L Acetone, Semi-Quantitative SMALL Urine Collection Type RANDOM Urine Color YELLOW Urine Appearance CLEAR Urine Bilirubin NEGATIVE Urine Ketones 1+ Urine Specific [place] 1.020 Urine pH 7.0 Urine Protein 3+ Urine Urobilinogen 0.2 E.U./dL Urine Nitrate NEGATIVE Urine Leukocyte Esterase NEGATIVE Urine Glucose (Auto)(UA) >=1000 mg/dL Urine Blood 1+ Urine RBC 0-2 RBC/HPF Urine WBC 0-2 WBC/HPF Urine Squamous Epithelial Cells FEW Urine Bacteria NONE SEEN Urine Yeast FEW Lactic Acid Followup at 2 Hours 1.3 mmol/L Test 02/25/22 16:47 02/25/22 18:12 02/25/22 19:34 02/26/22 02:10 Bedside Glucose 382 311 187 113 Test 02/26/22 04:40 Sodium Level 133 mmol/L Potassium Level 3.7 mmol/L Chloride Level 98.0 mmol/L Carbon Dioxide Level 28.4 mmol/L Glucose Level 127 mg/dL Blood Urea Nitrogen 28 mg/dL Creatinine 0.96 mg/dL Calcium Level 8.2 mg/dL Anion Gap 10.3 Estimated GFR () 92.9 Est GFR (CKD-EPI)(Non-Afr Scottish) 76.8 BUN/Creatinine Ratio 29.0 Current Medications Medications (Trade) Dose Ordered Sig/Curt PRN Reason Start Time Stop Time Status Last Admin Albuterol Sulfate (Ventolin) 2.5 mg RTQ2 PRN 02/25/22 16:00 03/27/22 15:59 Aspirin (Aspirin) 81 mg DAILY 02/26/22 09:00 03/28/22 08:59 02/26/22 08:22 Atorvastatin Calcium (Lipitor) 80 mg DAILY 02/26/22 09:00 03/28/22 08:59 02/26/22 08:22 Clopidogrel Bisulfate (Plavix) 75 mg DAILY 02/26/22 09:00 03/28/22 08:59 02/26/22 08:22 Dextrose (Dextrose 50%-Water Syringe) 25 ml STAT PRN HYPOGLYCEMIA 02/25/22 15:30 03/27/22 15:29 Enoxaparin Sodium (Lovenox) 40 mg HS 02/25/22 21:00 03/27/22 20:59 02/25/22 21:10 Famotidine (Pepcid) 20 mg BIDAC 02/26/22 07:30 03/28/22 07:29 02/26/22 08:22 Famotidine (Pepcid) 20 mg OT 02/25/22 21:00 03/27/22 20:59 Gabapentin (Neurontin) 400 mg QID 02/25/22 17:00 03/27/22 16:59 02/26/22 08:23 Hydroxyzine HCl (Atarax) 25 mg BID PRN ANXIETY 02/25/22 15:30 03/27/22 15:29 Insulin Glargine (Lantus) 50 unit HS 02/25/22 21:00 03/27/22 20:59 02/25/22 21:09 Insulin Human Lispro (Humalog) Give when food is in front... TIDM 02/25/22 18:00 03/27/22 17:59 02/25/22 16:56 Morphine Sulfate (Morphine Sulfate) 2 mg Q4H PRN PAIN SEVER 02/25/22 15:30 03/27/22 15:29 Nitroglycerin (Nitrostat) 0.4 mg DAILY PRN CHEST PAIN 02/25/22 15:30 03/27/22 15:29 Ondansetron HCl (Zofran Odt) 8 mg Q4H PRN NAUSEA / VOMITING 02/25/22 10:30 03/27/22 10:29 02/25/22 10:24 Ondansetron HCl (Zofran) 4 mg Q4H PRN NAUSEA / VOMITING 02/25/22 16:00 03/27/22 15:59 Quetiapine Fumarate (Seroquel) 100 mg HS 02/25/22 21:00 03/27/22 20:59 02/25/22 21:10 Sertraline HCl (Zoloft) 200 mg DAILY 02/26/22 09:00 03/28/22 08:59 02/26/22 08:22 Sodium Chloride 1,000 ml @ 100 mls/hr Q10H 02/25/22 15:30 03/27/22 15:29 02/26/22 00:33 Trazodone HCl (Trazodone HCl) 300 mg HS 02/25/22 21:00 03/27/22 20:59 02/25/22 21:20 LEVEL 1 SEPSIS INFECTION CRITE: None/Not assessed LEVEL 2-SIRS (LIST ALL THAT AP: None/Not assessed Cardiovascular Evidence: Not Assessed or None Hematologic Evidence: None/Not assessed Hepatic Evidence: None/Not assessed Metabolic Evidence: None/Not assessed Neurological Evidence: None/Not assessed Respiratory Evidence: Need for O2 to keep>90% Renal Evidence: None/Not assessed O2 Sat by Pulse Oximetry: 97 Oxygen Flow Rate: 2.00 TIMO GREENWOOD MD Feb 26, 2022 10:17
--- NOTE | 2022-02-26 11:16 | NUR ---
DISCHARGE PLANNING: SW VSITIED WITH PT REGARDING DISCHARGE PLANNING. PT LIVES HOME ALONE. PT USES A WHEEL CHAIR TO ASSIST WITH AMBULATION. PT'S PCP IS [facility] AND STATED HE ALSO WAS SET UP WITH CARE THROUGH THEM. PT COULDN'T RECALL THE [facility] NAME AND STATED "I WISH MY EX WAS HERE SHE KNOWS ALL THAT". PT STATED HE THOUGHT IT STARTED WITH A "[facility]" BUT COULDN'T RECALL. [facility] . SW WILL CONTINUE TO FOLLOW. PT DENIED NEEDING ADDITIONAL RESOURCES AT THIS TIME. PT'S GOAL IS TO RETURN HOME TO ROUTINE SELF CARE AND FOLLOW UP POST DISCHARGE WITH PCP AT THE [facility]. NO FURTHER DISCHARGE NEEDS NOTED OR IDENTIFIED AT THIS TIME.
--- NOTE | 2022-02-26 12:50 | NUR ---
DISCHARGE DISCHARGE INSTRUCTIONS GIVEN TO PT BOTH VERBALLY AND WRITTEN AT THIS TIME. PT VERBALIZES UNDERSTANDING OF ALL EDUCATION, INCLUDING INDICATIONS OF USE FOR NEW RX, AND POSSIBLE S/E. NO QUESTIONS OR CONCERNS NOTED AT THIS TIME. TRIPLE LUMEN CENTRAL LINE REMOVED FROM R CHEST VIA ASEPTIC TECHNIQUE, STITCHES X2 REMOVED, CATHETER TIP STILL INTACT, MANUAL PRESSURE HELD FOR 5 MINUTES, 4X4 GAUZE, AND BIOCLUSIVE DRESSING PLACED. PT TOLERATED WELL. PT SHOWS NO S/S OF ACUTE DISTRESS. PT AMBULATED OFF OF UNIT ACCOMPANIED BY DAUGHTER TO PRIVATE AUTO. RELINQUISHED CARE OF PT.
[2022-02-26 13:21] VITALS: BP 121/79
== END 2022-02-26 12:50 | disposition home or self-care (01) | DRG 638 ==
LOC: ER 09:28 → INTOOBSV 12:57 → OBSVTOIN 12:57 → UNDOADMOB 12:57 → MS 12:57
PROVIDERS: ADMIT Internal Medicine; ATTEND Internal Medicine
DX: E11.65 Type 2 diabetes mellitus with hyperglycemia (principal); E87.20 Acidosis, unspecified; I13.0 Hypertensive heart and chronic kidney disease with heart failure and stage 1 through stage 4 chronic kidney disease, or unspecified chronic kidney disease; E11.22 Type 2 diabetes mellitus with diabetic chronic kidney disease; E78.5 Hyperlipidemia, unspecified; F17.210 Nicotine dependence, cigarettes, uncomplicated; F32.A Depression, unspecified; I25.10 Atherosclerotic heart disease of native coronary artery without angina pectoris; I50.9 Heart failure, unspecified; F41.9 Anxiety disorder, unspecified; R79.89 Other specified abnormal findings of blood chemistry; G89.29 Other chronic pain; M54.50 Low back pain, unspecified; J44.9 Chronic obstructive pulmonary disease, unspecified; E86.0 Dehydration; N18.9 Chronic kidney disease, unspecified; Z79.4 Long term (current) use of insulin; Z79.82 Long term (current) use of aspirin; Z79.899 Other long term (current) drug therapy; Z99.81 Dependence on supplemental oxygen; Z88.0 Allergy status to penicillin; I25.2 Old myocardial infarction
CPT/HCPCS: 36415; 36556; 36600; 71045; 74150; 80048; 80053; 81001; 82010; 82150; 82803; 82948; 83605; 83690; 83880; 84484; 85025; 85379; 85610; 85730; 87040; 93005; 99285; G0378; J1650; J1815; J2175; J7030; C1751